=== PATIENT | male | born 1980 | race Caucasian/White ===

== ENCOUNTER 2020-07-13 17:06 | Inpatient (IN) | payer OTHER, SELFPAY ==
[2020-07-13] VITALS (9 sets, daily range): BP systolic 98–162; BP diastolic 62–90; PULSE 71–89; RESP 14–18; TEMP 36–37.8; O2SAT 92–99; BMI 23.7; BMI 27.8; BMI 22.9
[2020-07-13] MEDS: Ondansetron 4 MG/2 ML Vial IV (17:23)
--- NOTE | 2020-07-13 17:23 | RAD_ITS ---
INDICATION: trauma EXAMINATION/TECHNIQUE: X-RAY - RIGHT XR Ankle 2 Views COMPARISON: None. FINDINGS: Severe deformity of the ankle with likely dislocation at the talonavicular and talocalcaneal joints. No obvious fracture. No blastic or lytic lesions. No degenerative changes are seen. Marked soft tissue swelling of the ankle. RAD/Ankle 2 Views IMPRESSION: Severe deformity of the ankle with likely dislocation at the talonavicular and talocalcaneal joints. No obvious fracture. Recommend CT. Electronically Signed: Catarino Marie MD at 18:05 EDT Tel , Service support ,
--- NOTE | 2020-07-13 17:24 | ED.VIS.GEN ---
History of Present Illness Chief Complaint: Lower Extremity Injury Informant: Patient Onset: Today Context: Sudden Onset Timing: Continuous Current Severity: Moderate Maximum Severity: Severe Narrative: Patient is a 40-year-old male who is otherwise healthy on no daily medications who presents to the emergency department with right ankle injury. Patient was working on a priti truss. He states that approximately 12 to 15 feet in the air. The structure fell. He states that he went a 45 degree angle down with the structure. He landed on his right foot and suffered inversion injury. He did not strike his head. He denies loss of consciousness. He denies striking his back. He initially went to his primary care, but had bleeding at the area. They were concerned for open fracture and was sent here for further evaluation. Patient is unsure of last tetanus. He is otherwise been in his normal state of health. Prior similar symptoms: No Recent Illness/Hospitalization: No Past Medical History - Allergies and Home Meds Allergies/Adverse Reactions: Allergies No Known Allergies Allergy (Verified 07/13/20 17:08) Prior records reviewed: Yes Past Medical History: None Surgical History: noncontributory - Family History Maternal Family History: Reports: No pertinent history Paternal Family History: Reports: No pertinent history Review of Systems General: Denies: Chills, Fever, Sweats Eyes: Denies: Visual changes - bilaterally, Diplopia ENT: Denies: Rhinorrhea, Sore throat Cardiovascular: Denies: Chest pain, Palpitations Respiratory: Denies: Dyspnea, Cough, Dyspnea on exertion Gastrointestinal: Denies: Abdominal pain, Nausea, Vomiting, Diarrhea, Melena, Hematochezia Genitourinary: Denies: Dysuria, Hematuria, Frequency Musculoskeletal: Denies: Back pain, Extremity Pain Skin: Denies: Rash, Wounds Neurological: Denies: Headache, Weakness, Numbness Physical Exam Vital Signs/Narrative: Vital Signs Temp Pulse Resp BP Pulse Ox 07/13/20 17:07 97.0 F L 71 14 121/90 H 95 Inital Vital Signs reviewed: Yes General: Well nourished, Well developed, No Acute Distress Head: Normocephalic, Atraumatic Eyes: Perrl, EOMI ENT: Moist mucous membranes, No rhinorrhea Neck: Supple, Nontender Cardiovascular: Regular rate, Regular rhythm, No murmurs Respiratory: No distress, CTA bilaterally, Chest nontender Abdomen: Soft, Nontender, Nondistended, Normal bowel sounds Back: Nontender, Normal Inspection Extremities: No edema, Tenderness - Patient has obvious deformity of the right lower extremity. Is normal pulses. There is a 1 cm laceration over the lateral malleolus with active bleeding. No pain at the proximal fibula. Skin: Normal color, No rash Neurological: Alert, Oriented x3, Cranial nerves II-XII grossly intact, Normal Strength, Normal Sensation Psychological: Normal affect, Normal Mood Diagnostic/Tx/Re-eval Clinical Impression(s) from Imaging Studies Ankle X-Ray 07/13/20 17:23 IMPRESSION: Severe deformity of the ankle with likely dislocation at the talonavicular and talocalcaneal joints. No obvious fracture. Recommend CT. Electronically Signed: Catarino Marie MD at 18:05 EDT Tel , Service support , Lower Extremity CT 07/13/20 17:39 IMPRESSION: Fracture dislocation of the subtalar and talonavicular articulations. Electronically Signed: Damion Santiago MD at 18:50 EDT , Service support , Abnormal Lab Results 07/13/20 07/13/20 17:20 17:20 WBC 13.0 H RBC 5.64 Hgb 16.6 H Hct 49.1 MCV 87.1 MCH 29.4 MCHC 33.8 RDW Std Deviation 38.6 RDW Coeff of Haylie 12.2 Plt Count 209 MPV 9.2 Immature Gran % (Auto) 0.500 Neut % (Auto) 81.9 H Lymph % (Auto) 12.0 L [place] % (Auto) 4.9 Eos % (Auto) 0.4 Baso % (Auto) 0.3 Absolute Neuts (auto) 10.6 H Absolute Lymphs (auto) 1.55 Nucleated RBC % 0 Sodium 140 Potassium 3.9 Chloride 106 Carbon Dioxide 28.0 Anion Gap 6 BUN 16 Creatinine 1.12 Estim Creat Clear Calc 89.62 Est GFR (MDRD) Af Amer 93 Est GFR (MDRD) Non-Af 77 BUN/Creatinine Ratio 14.3 Glucose 123 H Calcium 9.1 - Medical Decision Making Patient presents with obvious deformity of the foot, but does have pulses. There is an open area. He was given IV analgesics and antibiotics. His tetanus was updated. Plain films were obtained and I promptly discussed this with Dr. Unger. He did request CT which was done. We did not reduce the patient in the emergency department because he was going to be taken to the operating room by podiatry. Patient was comfortable with this plan of care. Impression 1. Open subtalar and talonavicular dislocation ED Disposition - Plan for ED Patient: Disposition: Acute Care Hospital [facility]
[2020-07-13] MEDS: Morphine 4 MG/ML Syringe IV (17:26)
[2020-07-13] MEDS: 0.9% Normal Saline 1,000 ML 1000 ML IV (17:33)
[2020-07-13] MEDS: Diphth,Pertuss(Acell),Tet Vac 0.5 ML Vial IM (17:33)
--- NOTE | 2020-07-13 17:39 | CT_ITS ---
STUDY: CT RIGHT ANKLE WITHOUT CONTRAST REASON FOR EXAM: Male, 40 years old. Pain. Abnormal x-ray. Fall from roof, injury RADIATION DOSAGE (If Supplied By Facility): CTDIvol = ( 15.35 ) mGy, DLP = ( 457.38 ) mGycm TECHNIQUE: Thin section transaxial imaging of the ankle was obtained, with sagittal and coronal reconstructed images. Individualized dose optimization techniques were used for this CT. COMPARISON: X-ray. FINDINGS: Normal visualized distal tibia and fibula. Normal tibiotalar articulation and talar dome. There is medial dislocation at the subtalar and talonavicular articulations. There are acute fractures of the posterior inferior talus. Normal navicular-cuneiform, cuneiform tarsal bones and intercuneiform articulations. Normal tarsometatarsal articulations and visualized metatarsi. There is soft tissue swelling. CT/Extremity Lower without Contra IMPRESSION: Fracture dislocation of the subtalar and talonavicular articulations. Electronically Signed: Damion Santiago MD at 18:50 EDT , Service support ,
[2020-07-13 17:51] LABS: Anion Gap 6 (5-15); BUN 16 mg/dL (7-18); BUN/Creat Ratio 14.3 RATIO (10-20); Calcium,Total 9.1 mg/dL (8.5-10.1); Chloride 106 mmol/L (98-107); Creatinine, Serum 1.12 mg/dL (0.70-1.30); EST Glomerular Filtration Rate 77 mL/min (>60); Est Glom Filt Rate - Afr Amer 93 mL/min (>60); Estimated Creatinine Clearance 89.62 ml/min; Glucose 123 mg/dL (74-106); Potassium 3.9 mmol/L (3.5-5.1); Sodium Level 140 mmol/L (136-145)
[2020-07-13 17:53] LABS: Absolute Lymphocyte Count 1.55 X10^3/uL (0.83-4.51); Absolute Neutrophil Count 10.6 X10^3/uL (2.0-7.7); Basophil# 0.04 X10^3/uL; Basophil% 0.3 % (0-1); Eosinophil# 0.05 X10^3/uL; Eosinophils% 0.4 % (0-5); Hematocrit 49.1 % (40-54); Hemoglobin 16.6 g/dL (13.0-16.5); Lymphocyte # 1.55 X10^3/ul (0.83-4.51); Mean Corp Hgb Conc 33.8 g/dL (32-36); Mean Corpuscular Hgb 29.4 pg (27.0-32.0); Mean Corpuscular Volume 87.1 fL (80-94); Mean Platelet Vol. 9.2 fl (6.2-12.0); Monocyte# 0.63 X10^3/uL; Monocyte% 4.9 % (0-10); NRBC Flagged by Analyzer 0 % (0-5); Neutrophil # 10.61 X10^3/uL (2.7-7.7); Neutrophil % 81.9 % (47-70); Platelet Count 209 K/mm3 (150-450); RBC Distribution Width CV 12.2 % (11.6-14.6); RBC Distribution Width SD 38.6 fl (35.1-43.9); Red Blood Count 5.64 M/mm3 (4.6-6.2)
[2020-07-13] MEDS: HYDROmorphone 1 MG/ML Syringe IV (17:58)
[2020-07-13] MEDS: Cefazolin 1 GM/50 ML BAG IV (17:59)
--- NOTE | 2020-07-13 18:04 | PCM.CONS.GEN ---
Problem List (1) Closed traumatic dislocation of subtalar joint Status: Acute Qualifiers: Encounter type: initial encounter Laterality: right Qualified Code(s): S93.314A - Dislocation of tarsal joint of right foot, initial encounter Reason for Consult Date of Consultation: 07/13/20 Reason for Consultation: medical management for surgical patient History of Present Illness: The patient is a 40 year old M who presented today with a suspected subtalar fracture. Patient states that he was working on a barn and they were removing trusses when they removed the first truss the rest of the trusses fell and he fell with it. Patient denies hitting head or back. Patient right ankle deformed with noted inversion. Ankle x-ray impression: [Severe deformity of the ankle with likely dislocation at the talonavicular and talocalcaneal joints. No obvious fracture. Recommend CT]. Lower extremity CT pending. Patient has no medical history. Surgical history of appendectomy and hernia repair. Patient does not currently take daily medications. Patient reports he took ibuprofen prior to arrival at ER. Patient rates ankle pain 10/03 and has received IV dilaudid in ER. VS stable. Past Medical History Allergies No Known Allergies Allergy (Verified 07/13/20 17:08) Home Medications: Ambulatory Orders Medication Instructions Recorded NK 07/13/20 Surgical History: appendectomy, herniorrhaphy Psychiatric History: No pertinent psych hx Lives: Spouse/ Significant Other Smoking Status: Never smoker Alcohol: None Drugs: None - *Family History Maternal History Items: No pertinent history Paternal History Items: No pertinent history Review of Systems Constitutional: Denies: Chills, Fever, Weight Change HEENT: Denies: Head Aches, Sinus Congestion, Sinus Drainage Cardiovascular: Denies: Chest Pain, Palpitations Respiratory: Denies: Cough, Shortness of breath at rest, Sputum production Gastrointestinal: Denies: Abdominal Pain, Nausea, Vomiting Genitourinary: Denies: Dysuria Musculoskeletal: Reports: Foot Pain, Joint swelling - Right Foot/ankle, Joint Tenderness Skin: Denies: Rash, Wounds Neurological: Denies: Numbness, Tingling, Focal weakness Psychiatric: Denies: Anxiety, Depression, Homicidal Ideations, Suicidal Ideations Hematologic/ Lymphatic: Denies: Easy Bruising, Easy Bleeding Patient Problems: Active and Suspected Problems Closed traumatic dislocation of subtalar joint (Acute) - Physical Exam Vitals/I&O's: Vital Signs Temp Pulse Resp BP Pulse Ox 97.0 F L 71 14 121/90 H 95 07/13/20 17:07 07/13/20 17:07 07/13/20 17:07 07/13/20 17:07 07/13/20 17:07 Oxygen Delivery Method Room Air Weight: 165 lb 5.547 oz Body Mass Index (BMI) 23.7 General: Alert, Oriented x3, Cooperative HEENT: Atraumatic, PERRLA, EOMI, Normocephalic Neck: Supple, No JVD, Negative Carotid Bruits Lungs: Clear to auscultation, Normal air movement Cardiovascular: Regular rate, Regular Rhythm, Normal S1, Normal S2, No murmurs Abdomen: Bowel Sounds Present, Soft, Non Tender Extremities: No edema, Capillary Refill Less than 3 Seconds, Peripheral Pulses Normal Skin: No rashes, No breakdown Musculoskeletal: Tenderness - Patient right ankle obviously deformed and swollen, pulses intact. Neurological: Cranial nerves II-XII grossly intact Psych/Mental Status: Normal Affect, Appropriate Laboratory Results 07/13/20 17:20: WBC 13.0 H, RBC 5.64, Hgb 16.6 H, Hct 49.1, MCV 87.1, MCH 29.4, MCHC 33.8, RDW Std Deviation 38.6, RDW Coeff of Haylie 12.2, Plt Count 209, MPV 9.2, Immature Gran % (Auto) 0.500, Neut % (Auto) 81.9 H, Lymph % (Auto) 12.0 L, Motley % (Auto) 4.9, Eos % (Auto) 0.4, Baso % (Auto) 0.3, Absolute Neuts (auto) 10.6 H, Absolute Lymphs (auto) 1.55, Nucleated RBC % 0 07/13/20 17:20: Sodium 140, Potassium 3.9, Chloride 106, Carbon Dioxide 28.0, Anion Gap 6, BUN 16, Creatinine 1.12, Estim Creat Clear Calc 89.62, Est GFR (MDRD) Af Amer 93, Est GFR (MDRD) Non-Af 77, BUN/Creatinine Ratio 14.3, Glucose 123 H, Calcium 9.1 Current Medications Sodium Chloride () 1,000 mls @ 1,000 mls/hr IV .Q1H ONE Stop: 07/13/20 18:17 Last Admin: 07/13/20 17:33 Dose: 1,000 mls/hr Documented by: Assessment/Plan All Active Problems Closed traumatic dislocation of subtalar joint (Acute) 1. Closed traumatic dislocation of the subtalar joint -Per Ankle X-ray report-Severe deformity of the ankle with likely dislocation at the talonavicular and talocalcaneal joints. No obvious fracture. -CT results pending. -Admit to MedSurg -Pain medication regimen ordered including acetaminophen, oxycodone, and morphine. -Antiemetics also ordered as needed. -CBC and CMP in morning -NPO prior to surgery. DVT prophylaxis-recommend SCDs This patient was seen by MALENA Puente under the supervision of Dr. Pereyra.
--- NOTE | 2020-07-13 18:52 | HP.PCM_ITS ---
History of Present Illness Date of Admission: 07/13/20 Chief Complaint: Right foot dislocation The patient is a 40 year old gentleman presented to the [facility] ER today for right foot open dislocation of the subtalar joint. Patient relates he fell off a roof this afternoon, and twisted foot. He had obvious deformity and pain. He went to his PCP's office, Dr. Garcia, and was referred to the ER due to the injury. Right ankle xrays and CT scan of the right foot/ankle confirmed subtalar joint and talonavicular dislocations with some fractures of the posterior inferior talus. He has an open wound to the lateral ankle/foot. Patient with no known medical history, he denies use of tobacco. He has no other complaints. Past Medical History Allergies No Known Allergies Allergy (Verified 07/13/20 17:08) Home Medications: Ambulatory Orders Medication Instructions Recorded NK 07/13/20 Surgical History: appendectomy, herniorrhaphy Psychiatric History: No pertinent psych hx Lives: Spouse/ Significant Other Smoking Status: Never smoker Tobacco Use: Non-smoker Alcohol: None Drugs: None - *Family History Maternal History Items: No pertinent history Paternal History Items: No pertinent history Review of Systems Constitutional: Denies: Chills, Fever, Malaise, Fatigue Eyes: Denies: Blurred vision HEENT: Denies: Head Aches Gastrointestinal: Denies: Nausea, Vomiting Musculoskeletal: Reports: Foot Pain, Joint Pain - right foot Skin: Reports: Wounds VTE Information - Inpt Only VTE Present on Admission: No Patient Problems: Active and Suspected Problems Closed traumatic dislocation of subtalar joint (Acute) - Physical Exam Vitals/I&O's: Vital Signs Temp Pulse Resp BP Pulse Ox 98.9 F 80 14 162/87 H 95 07/13/20 18:23 07/13/20 18:23 07/13/20 18:23 07/13/20 18:23 07/13/20 18:23 Oxygen Delivery Method Room Air Weight: 88 kg Body Mass Index (BMI) 27.8 Intake and Output for Last 24 Hours 07/11/20 07/12/20 07/13/20 23:59 23:59 23:59 Intake Total 50 / 50 Balance 50 / 50 General: Alert, Oriented x3, Cooperative, No apparent distress Extremities: Capillary Refill Less than 3 Seconds, No Calf Tenderness, - - Right foot with dressing intact with no strikethrough. Right ankle xrays and CT scan reviewed. Microbiology Past 72 Hours 07/13/20 17:45 Mucosa - Nose SARS-CoV-2 Antigen (Rapid) - Final Laboratory Results 07/13/20 17:20: WBC 13.0 H, RBC 5.64, Hgb 16.6 H, Hct 49.1, MCV 87.1, MCH 29.4, MCHC 33.8, RDW Std Deviation 38.6, RDW Coeff of Haylie 12.2, Plt Count 209, MPV 9.2, Immature Gran % (Auto) 0.500, Neut % (Auto) 81.9 H, Lymph % (Auto) 12.0 L, [place] % (Auto) 4.9, Eos % (Auto) 0.4, Baso % (Auto) 0.3, Absolute Neuts (auto) 10.6 H, Absolute Lymphs (auto) 1.55, Nucleated RBC % 0 07/13/20 17:20: Sodium 140, Potassium 3.9, Chloride 106, Carbon Dioxide 28.0, Anion Gap 6, BUN 16, Creatinine 1.12, Estim Creat Clear Calc 89.62, Est GFR (MDRD) Af Amer 93, Est GFR (MDRD) Non-Af 77, BUN/Creatinine Ratio 14.3, Glucose 123 H, Calcium 9.1 Current Medications Acetaminophen (Acetaminophen 325 Mg Tablet) 650 mg PO Q6H PRN PRN PRN Reason: Pain Score 1-3 /Temp>100.7 Al Hydroxide/Mg Hydroxide (Mag Hydrox/Al Hydrox/Simeth 30 Ml Udc) 30 ml PO Q6H PRN PRN PRN Reason: Gastric Burning Albuterol Sulfate (Albuterol 2.5 Mg/3 Ml Vial.Neb.) 2.5 mg INHALATION Q2H PRN PRN PRN Reason: Dyspnea, wheezing Bisacodyl (Bisacodyl 5 Mg Tablet) 10 mg PO DAILY PRN PRN PRN Reason: Constipation Docusate Sodium (Docusate Sodium 100 Mg Capsule) 200 mg PO BID PRN PRN PRN Reason: Constipation Hydralazine HCl (Hydralazine 20 Mg/Ml Vial) 10 mg IV Q4H PRN PRN PRN Reason: SBP > 160 Sodium Chloride () 1,000 mls @ 100 mls/hr IV .Q10H LALO Morphine Sulfate (Morphine 2 Mg/Ml Syringe) 2 - 4 mg IV Q3H PRN PRN PRN Reason: Pain Score 6-10 Morphine Sulfate (Morphine 2 Mg/Ml Syringe) 1 - 2 mg IV Q4H PRN PRN PRN Reason: Pain Score 4-5 Ondansetron HCl (Ondansetron 4 Mg/2 Ml Vial) 4 mg IV Q8H PRN PRN PRN Reason: Nausea Oxycodone HCl (Oxycodone 5 Mg Tablet) 5 mg PO Q4H PRN PRN PRN Reason: Pain Score 4-5 Polyethylene Glycol (Polyethylene Glycol 3350 17 Gm Packet) 17 gm PO DAILY LALO Prochlorperazine Edisylate (Prochlorperazine 10 Mg/2 Ml Vial) 10 mg IV Q6H PRN PRN PRN Reason: Nausea/Vomiting Assessment/Plan All Active Problems Closed traumatic dislocation of subtalar joint (Acute) Right subtalar joint and talonavicular joint open dislocation with some fractures of the posterior inferior talus Reviewed diagnostic data. Reviewed right ankle and right foot/ankle CT scan. Reviewed the findings with the patient in detail. We discussed options with the patient. Given the severity of the injury and dislocation and open nature of this we all agree it is best to proceed with open reduction with possible fixation of the subtalar joint and talonavicular joint dislocation with irritation. Reviewed the possible benefits vs risks of this, reviewed alternative options. Reviewed goals and expectations. Patient elected to proceed forward with the procedure today. The patient will be started on antibiotics. A culture will be obtained intraoperatively. The patient will be admitted for antibiotics, pain control, and observation post operatively. Patient agreed with this plan. The hospitalist service was consulted for medical evaluation as patient with no known significant medical history otherwise.
[2020-07-13] MEDS: Bupivacaine Mpf 0.5% 30 ML VIAL (19:15)
--- NOTE | 2020-07-13 19:20 | RAD_ITS ---
STUDY: Fluoroscopic guidance for operative procedure of ORIF surgery through the ankle. REASON FOR EXAM: Male, 40 years old. DISLOCATION TECHNIQUE: Fluoroscopic guidance was provided for operative procedure of pinning of the talus and calcaneus. The radiologist was not present in the room. 4 images were obtained during the exam. The total fluoroscopy time is 54 seconds. COMPARISON: None. FINDINGS: Submitted images reveal pinning of the talus and calcaneus are normal alignment visualized. RAD/Ankle 2 Views IMPRESSION: Endoscopic guidance for operative procedure through the talus and calcaneus as described. For details please see operative report. Electronically Signed: Angela Yu MD at 2:52 EDT , Service support ,
--- NOTE | 2020-07-13 20:29 | PCM.OPRPT ---
Report of Operation Date of Procedure: 07/13/20 Pre-Operative Diagnosis: Open dislocation of the subtalar and talonavicular joints, right Post-Operative Diagnosis: Same Surgery/Procedure Performed:: Open reduction and internal fixation of the subtalar and talonavicular joints, right foot manager intermediate: None Type of Anesthesia:: General, Local Specimen's removed: Deep wound culture from right lateral hindfoot/ankle sent to microbiology Description of Procedure: Indications: This is 40 year old gentleman who sustained a right foot subtalar and talonavicular joint dislocation, this is an open dislocation, which happened this afternoon around 3pm, falling about 15 feet on the foot. Patient presented to the ER shortly after the injury. He elected to proceed with irritation with open reduction and possible internal fixation of the dislocated joints. Reviewed the procedure with patient in great detail. Reviewed the possible benefits. Reviewed the risks with him, advised him the risks include but are not limited to pain, swelling, numbness, deformity, post op/post traumatic arthritis, weakness, scar tissue, blood clots, bleeding, infection, need for further surgery, delayed healing, nonhealing, difficulty walking, loss of function, complex regional pain syndrome, loss of limb, loss of life. Patient expressed understanding and agreement and was able to repeat back. The consent form was reviewed with him and he freely signed it. All of his questions were answered. No guaranteed were given nor implied. No warranties were given. Operative procedure: The patient was brought back to the operating room and was placed on the operating room table in the supine position. He was carefully secured to the operating room table with a safety belt around his waist. The patient already received IV Ancef in the ER. The patient received general anesthesia per the anesthesia team. A well padded pneumatic tourniquet was applied around his right ankle but was never inflated. A time out was performed and the patient was properly identified and the surgical plan was confirmed. The right foot and ankle were scrubbed, prepped, and draped in the usual aseptic fashion. Further attention was directed to the right foot and there was very obvious deformity of the right foot with varus deformity and clear dislocation of the hindfoot. There was an open wound of ~1cm to the lateral hindfoot with some active bleeding. The site was flushed out with copious amounts of normal saline solution. The talonavicular and subtalar joints were distracted each manually and both were gently reduced back into normal alignment. This was confirmed clinically and via intra operative fluoroscopy. There was noted to be instability of the subtalar joint and would pop out of alignment at end inversion range of motion. Therefore a 5/64 in Hemal pin was placed percutaneously across the posterior subtalar joint with the joint in normal alignment. Proper placement was confirmed using intraoperative fluoroscopy. There was now good and normal stability to the foot and was in normal alignment. The ankle was checked and rest of the foot joints checked and there was no instability noted. There was negative anterior drawer to the right ankle and normal ankle inversion. The wound site was again flushed out with copious amounts of normal saline solution. A deep wound culture was obtained and sent to microbiology. The wound was noted to be healthy and viable with no necrosis, no fluctuance, no crepitus, no abscess, no purulence noted. The wound was closed with 3-0 Nylon. The kwire was trimmed and capped. A total of 30mL of 0.5% Bupivacaine plain was given as a local block around the hindfoot/ankle was given to help with post operative pain control. A dressing was applied which consisted of Betadine soaked adaptic, 4x4 gauze, Kerlix, abd pads and an lisa bandage. A well padded posterior splint was applied to the right foot, ankle and leg secured with lisa bandages and heel offloaded. CFT < 2 seconds to all toes and there was noted to be normal temperature to the right foot with no evidence of ischemia noted. The patient tolerated the above procedure well and anesthesia well with no complications. The patient was transported from the operating room with vital signs stable and in good condition. Post operative orders placed. Formal post operative xrays were ordered. The patient will be admitted for observation, pain control and antibiotics. He will be followed as an inpatient. Grafts/Implants Used: 1 x 5/64 in Steiman pin - Complications None
--- NOTE | 2020-07-13 21:00 | RAD_ITS ---
STUDY: X-RAY - RIGHT ANKLE REASON FOR EXAM: Male, 40 years old. post op TECHNIQUE: 3 view(s) of the ankle. COMPARISON: None. FINDINGS: Normal visualized distal tibia and fibula. Normal medial and lateral malleoli. Normal tibiotalar articulation and ankle mortise. Fixation pin through the talus and calcaneus otherwise normal visualized talus and calcaneus. The visualized subtalar, talonavicular, calcaneocuboid and tarsal articulations are normal. Soft tissue swelling from surrounding the ankle. RAD/Ankle min 3 Views IMPRESSION: Postoperative changes as described with soft tissue swelling at the ankle. Normal alignment. Electronically Signed: Angela Yu MD at 2:51 EDT , Service support ,
--- NOTE | 2020-07-13 21:00 | RAD_ITS ---
STUDY: X-RAY - RIGHT FOOT CLINICAL: Male, 40 years old. post op TECHNIQUE: 3 view(s) of the foot. COMPARISON: None. FINDINGS: Postoperative changes through the talus and calcaneus with fixation pin, otherwise normal talus, calcaneus, and tarsal bones. Normal visualized subtalar, talonavicular, calcaneocuboid, tarsal and tarsometatarsal articulations. Normal metatarsi. Normal metatarsophalangeal joint of the great toe. Normal tibial and fibular sesamoid bones. Normal interphalangeal joint of the great toe. Normal phalanges of the great toe. Normal second through fifth metatarsophalangeal joints. Normal interphalangeal joints and phalanges of the lesser toes. There is soft tissue swelling surrounding the ankle. RAD/Foot min 3 Views IMPRESSION: Postoperative changes as described with normal alignment. Persistent soft tissue swelling at the ankle. Electronically Signed: Angela Yu MD at 2:50 EDT , Service support ,
[2020-07-13] MEDS: 0.9% Normal Saline 1,000 ML 100 ML IV (21:52)
[2020-07-14 01:44] VITALS: BP 107/62; PULSE 71; RESP 16; TEMP 37.4; O2SAT 94
[2020-07-14 05:44] VITALS: BP 108/58; PULSE 79; RESP 16; TEMP 36.9; O2SAT 94
[2020-07-14 06:53] LABS: Absolute Lymphocyte Count 1.34 X10^3/uL (0.83-4.51); Absolute Neutrophil Count 8.7 X10^3/uL (2.0-7.7); Basophil# 0.01 X10^3/uL; Basophil% 0.1 % (0-1); Hematocrit 45.9 % (40-54); Hemoglobin 15.3 g/dL (13.0-16.5); Lymphocyte # 1.34 X10^3/ul (0.83-4.51); Lymphocyte % 12.8 % (19-41); Mean Corp Hgb Conc 33.3 g/dL (32-36); Mean Corpuscular Hgb 29.2 pg (27.0-32.0); Mean Corpuscular Volume 87.6 fL (80-94); Mean Platelet Vol. 9.3 fl (6.2-12.0); Monocyte# 0.37 X10^3/uL; Monocyte% 3.5 % (0-10); NRBC Flagged by Analyzer 0 % (0-5); Neutrophil # 8.69 X10^3/uL (2.7-7.7); Neutrophil % 83.3 % (47-70); Platelet Count 198 K/mm3 (150-450); RBC Distribution Width CV 12.3 % (11.6-14.6); RBC Distribution Width SD 39.3 fl (35.1-43.9); Red Blood Count 5.24 M/mm3 (4.6-6.2); White Blood Count 10.4 K/mm3 (4.4-11.0)
[2020-07-14 07:15] LABS: ALB/GLOB Ratio 1.1 RATIO (0.9-2.4); AST(SGOT) 27 U/L (15-37); Alanine Aminotransfer ALT/SGPT 72 U/L (16-61); Albumin, Serum 3.4 g/dL (3.2-5.0); Alkaline Phosphatase 43 U/L (45-117); Anion Gap 7 (5-15); BUN 13 mg/dL (7-18); BUN/Creat Ratio 14.9 RATIO (10-20); Calcium,Total 8.5 mg/dL (8.5-10.1); Chloride 108 mmol/L (98-107); Creatinine, Serum 0.87 mg/dL (0.70-1.30); EST Glomerular Filtration Rate 102 mL/min (>60); Est Glom Filt Rate - Afr Amer 124 mL/min (>60); Globulin 3.1 g/dL (2.2-4.2); Glucose 128 mg/dL (74-106); Potassium 3.8 mmol/L (3.5-5.1); Protein, Total 6.5 g/dL (6.4-8.2); Sodium Level 139 mmol/L (136-145)
--- NOTE | 2020-07-14 07:41 | PCM.PROGNOTE ---
Patient Problems: Active and Suspected Problems Closed traumatic dislocation of subtalar joint (Acute) Subjective: Patient was seen this morning for follow up on right foot s/p reduction of TN and STJ with pin fixation. Patient relates he currently does not have any pain, no complaints of fever, chills, nausea or vomiting. He has no complaints. - Physical Exam Vitals/I&O's: Vital Signs Temp Pulse Resp BP Pulse Ox 98.4 F 79 16 108/58 L 94 07/14/20 05:44 07/14/20 05:44 07/14/20 05:44 07/14/20 05:44 07/14/20 05:44 Oxygen Delivery Method Room Air Weight: 72.575 kg Body Mass Index (BMI) 22.9 Intake and Output for Last 24 Hours 07/12/20 07/13/20 07/14/20 23:59 23:59 23:59 Intake Total 1050 / 1050 50 / 50 Output Total 1750 / 1750 Balance 1050 / 300 -1700 / -1700 General: Alert, Oriented x3, Cooperative, No apparent distress Extremities: Capillary Refill Less than 3 Seconds, No Calf Tenderness, - - Dressing/splint to the right foot/ankle is clean, dry and intact, CFT < 2 seconds to all toes, no pain, he is able to wiggle toes with dorsiflexion and plantarflexion. Microbiology Past 72 Hours 07/13/20 17:45 Mucosa - Nose SARS-CoV-2 Antigen (Rapid) - Final Laboratory Results 07/13/20 17:20: WBC 13.0 H, RBC 5.64, Hgb 16.6 H, Hct 49.1, MCV 87.1, MCH 29.4, MCHC 33.8, RDW Std Deviation 38.6, RDW Coeff of Haylie 12.2, Plt Count 209, MPV 9.2, Immature Gran % (Auto) 0.500, Neut % (Auto) 81.9 H, Lymph % (Auto) 12.0 L, [place] % (Auto) 4.9, Eos % (Auto) 0.4, Baso % (Auto) 0.3, Absolute Neuts (auto) 10.6 H, Absolute Lymphs (auto) 1.55, Nucleated RBC % 0 07/13/20 17:20: Sodium 140, Potassium 3.9, Chloride 106, Carbon Dioxide 28.0, Anion Gap 6, BUN 16, Creatinine 1.12, Estim Creat Clear Calc 89.62, Est GFR (MDRD) Af Amer 93, Est GFR (MDRD) Non-Af 77, BUN/Creatinine Ratio 14.3, Glucose 123 H, Calcium 9.1 07/14/20 06:08: WBC 10.4, RBC 5.24, Hgb 15.3, Hct 45.9, MCV 87.6, MCH 29.2, MCHC 33.3, RDW Std Deviation 39.3, RDW Coeff of Haylie 12.3, Plt Count 198, MPV 9.3, Immature Gran % (Auto) 0.300, Neut % (Auto) 83.3 H, Lymph % (Auto) 12.8 L, [place] % (Auto) 3.5, Eos % (Auto) 0.0, Baso % (Auto) 0.1, Absolute Neuts (auto) 8.7 H, Absolute Lymphs (auto) 1.34, Nucleated RBC % 0 07/14/20 06:08: Sodium 139, Potassium 3.8, Chloride 108 H, Carbon Dioxide 24.0, Anion Gap 7, BUN 13, Creatinine 0.87, Estim Creat Clear Calc 114.70, Est GFR (MDRD) Af Amer 124, Est GFR (MDRD) Non-Af 102, BUN/Creatinine Ratio 14.9, Glucose 128 H, Calcium 8.5, Total Bilirubin 0.80, AST 27, ALT 72 H, Alkaline Phosphatase 43 L, Total Protein 6.5, Albumin 3.4, Globulin 3.1, Albumin/Globulin Ratio 1.1 Current Medications Acetaminophen (Acetaminophen 325 Mg Tablet) 650 mg PO Q6H PRN PRN PRN Reason: Pain Score 1-10 /Temp>100.7 Al Hydroxide/Mg Hydroxide (Mag Hydrox/Al Hydrox/Simeth 30 Ml Udc) 30 ml PO Q6H PRN PRN PRN Reason: Gastric Burning Albuterol Sulfate (Albuterol 2.5 Mg/3 Ml Vial.Neb.) 2.5 mg INHALATION Q2H PRN PRN PRN Reason: Dyspnea, wheezing Bisacodyl (Bisacodyl 5 Mg Tablet) 10 mg PO DAILY PRN PRN PRN Reason: Constipation Docusate Sodium (Docusate Sodium 100 Mg Capsule) 200 mg PO BID PRN PRN PRN Reason: Constipation Hydralazine HCl (Hydralazine 20 Mg/Ml Vial) 10 mg IV Q4H PRN PRN PRN Reason: SBP > 160 Sodium Chloride () 1,000 mls @ 100 mls/hr IV .Q10H [facility] Last Admin: 07/13/20 21:52 Dose: 100 mls/hr Documented by: Piperacillin Sod/Tazobactam (Sod 3.375 gm/ Sodium Chloride) 50 mls @ 12.5 mls/hr IV Q8 [facility] Last Admin: 07/14/20 05:45 Dose: 12.5 mls/hr Documented by: Sodium Chloride () 250 mls @ 15 mls/hr IV .[id number] PRN PRN Reason: Saline Flush Sodium Chloride () 250 mls @ 15 mls/hr IV .[id number] PRN PRN Reason: Additional IVPB Infusion Morphine Sulfate (Morphine 2 Mg/Ml Syringe) 2 - 4 mg IV Q3H PRN PRN PRN Reason: Pain Score 6-10 Morphine Sulfate (Morphine 2 Mg/Ml Syringe) 1 - 2 mg IV Q4H PRN PRN PRN Reason: Pain Score 4-5 Ondansetron HCl (Ondansetron 4 Mg/2 Ml Vial) 4 mg IV Q8H PRN PRN PRN Reason: Nausea Oxycodone HCl (Oxycodone 5 Mg Tablet) 5 mg PO Q4H PRN PRN PRN Reason: Pain Score 4-5 Polyethylene Glycol (Polyethylene Glycol 3350 17 Gm Packet) 17 gm PO DAILY [facility] Prochlorperazine Edisylate (Prochlorperazine 10 Mg/2 Ml Vial) 10 mg IV Q6H PRN PRN PRN Reason: Nausea/Vomiting Sodium Chloride (0.9% Saline Lock 10 Ml Syringe) 10 - 40 ml IV UD PRN PRN Reason: SALINE FLUSH Medical Necessity - Tobacco Use Smoking Status: Never smoker Tobacco Use: Non-smoker Assessment/Plan All Active Problems Closed traumatic dislocation of subtalar joint (Acute) Right subtalar joint and talonavicular joint open dislocation with some fractures of the posterior inferior talus s/p reduction and pin placement on 07/13/2020 Patient doing well this morning. No evidence of complications at this time. Patient to keep dressing/splint clean, dry and intact. No weightbearing right foot, keep right foot elevated. Cultures pending, Dr. Saha from ID consulted for antibiotic recommendations due to open nature of this dislocation. Reviewed mechanical DVT Prophylaxis with patient. Rx for [place] 5mg/325mg, 1-2 tabs PO q 6 hr prn pain for patient to go home with. Plan for patient to be discharged home today, and patient to follow up with me in office on Monday07/17/2020 at 9AM, sooner if needed.
--- NOTE | 2020-07-14 08:06 | PCM.PN.HOSP ---
Patient Problems: Active and Suspected Problems Closed traumatic dislocation of subtalar joint (Acute) Reason for Visit: Follow-up for right subtalar and talonavicular traumatic dislocation Objective: Heart rate and blood pressure are controlled. Patient seen along with ID tour consultant Dr. Saha. Patient stated he rotated his ankle and had traumatic dislocation. Patient is states he has not been vaccinated with COVID-19 and does not want Covid vaccine. Physical exam General: Alert, Oriented x3, Cooperative HEENT: Atraumatic, PERRLA, EOMI, Normocephalic Oral: No Gingival or Mucosal Lesions/ Ulcerations Neck: Supple, No JVD, Negative Carotid Bruits Lungs: Air entry diminished in bilateral lung bases. No crepitation/rhonchi Cardiovascular: Regular rate, Regular Rhythm, Normal S1, Normal S2, No murmurs Abdomen: Bowel Sounds Present, Soft, Non Tender, Non-Distended : No renal angle tenderness. No suprapubic tenderness. Extremities: Capillary Refill Less than 3 Seconds Skin: No rashes, No breakdown Musculoskeletal: Right ankle under Lionel wrap bandage. No surgical drainage or wet or soakage. Mild swelling of right ankle and lower leg. Neurological: Cranial nerves II-XII grossly intact, Deep Tendon Reflexes 2+/4 and Symmetrical, Neuro grossly intact Psych/Mental Status: Normal Affect, Appropriate. Vitals/I&O's: Vital Signs Temp Pulse Resp BP Pulse Ox 98.4 F 79 16 108/58 L 94 07/14/20 05:44 07/14/20 05:44 07/14/20 05:44 07/14/20 05:44 07/14/20 05:44 Oxygen Delivery Method Room Air Weight: 160 lb Body Mass Index (BMI) 22.9 Intake and Output for Last 24 Hours 07/12/20 07/13/20 07/14/20 23:59 23:59 23:59 Intake Total 1050 / 1050 1050 / 1050 Output Total 1750 / 1750 Balance 1050 / 300 -700 / -700 Microbiology Past 72 Hours 07/13/20 17:45 Mucosa - Nose SARS-CoV-2 Antigen (Rapid) - Final Laboratory Results 07/13/20 17:20: WBC 13.0 H, RBC 5.64, Hgb 16.6 H, Hct 49.1, MCV 87.1, MCH 29.4, MCHC 33.8, RDW Std Deviation 38.6, RDW Coeff of Haylie 12.2, Plt Count 209, MPV 9.2, Immature Gran % (Auto) 0.500, Neut % (Auto) 81.9 H, Lymph % (Auto) 12.0 L, [place] % (Auto) 4.9, Eos % (Auto) 0.4, Baso % (Auto) 0.3, Absolute Neuts (auto) 10.6 H, Absolute Lymphs (auto) 1.55, Nucleated RBC % 0 07/13/20 17:20: Sodium 140, Potassium 3.9, Chloride 106, Carbon Dioxide 28.0, Anion Gap 6, BUN 16, Creatinine 1.12, Estim Creat Clear Calc 89.62, Est GFR (MDRD) Af Amer 93, Est GFR (MDRD) Non-Af 77, BUN/Creatinine Ratio 14.3, Glucose 123 H, Calcium 9.1 07/14/20 06:08: WBC 10.4, RBC 5.24, Hgb 15.3, Hct 45.9, MCV 87.6, MCH 29.2, MCHC 33.3, RDW Std Deviation 39.3, RDW Coeff of Haylie 12.3, Plt Count 198, MPV 9.3, Immature Gran % (Auto) 0.300, Neut % (Auto) 83.3 H, Lymph % (Auto) 12.8 L, [place] % (Auto) 3.5, Eos % (Auto) 0.0, Baso % (Auto) 0.1, Absolute Neuts (auto) 8.7 H, Absolute Lymphs (auto) 1.34, Nucleated RBC % 0 07/14/20 06:08: Sodium 139, Potassium 3.8, Chloride 108 H, Carbon Dioxide 24.0, Anion Gap 7, BUN 13, Creatinine 0.87, Estim Creat Clear Calc 114.70, Est GFR (MDRD) Af Amer 124, Est GFR (MDRD) Non-Af 102, BUN/Creatinine Ratio 14.9, Glucose 128 H, Calcium 8.5, Total Bilirubin 0.80, AST 27, ALT 72 H, Alkaline Phosphatase 43 L, Total Protein 6.5, Albumin 3.4, Globulin 3.1, Albumin/Globulin Ratio 1.1 Current Medications Acetaminophen (Acetaminophen 325 Mg Tablet) 650 mg PO Q6H PRN PRN PRN Reason: Pain Score 1-10 /Temp>100.7 Al Hydroxide/Mg Hydroxide (Mag Hydrox/Al Hydrox/Simeth 30 Ml Udc) 30 ml PO Q6H PRN PRN PRN Reason: Gastric Burning Albuterol Sulfate (Albuterol 2.5 Mg/3 Ml Vial.Neb.) 2.5 mg INHALATION Q2H PRN PRN PRN Reason: Dyspnea, wheezing Bisacodyl (Bisacodyl 5 Mg Tablet) 10 mg PO DAILY PRN PRN PRN Reason: Constipation Docusate Sodium (Docusate Sodium 100 Mg Capsule) 200 mg PO BID PRN PRN PRN Reason: Constipation Hydralazine HCl (Hydralazine 20 Mg/Ml Vial) 10 mg IV Q4H PRN PRN PRN Reason: SBP > 160 Piperacillin Sod/Tazobactam (Sod 3.375 gm/ Sodium Chloride) 50 mls @ 12.5 mls/hr IV Q8 [facility] Last Admin: 07/14/20 05:45 Dose: 12.5 mls/hr Documented by: Sodium Chloride () 250 mls @ 15 mls/hr IV .[id number] PRN PRN Reason: Saline Flush Sodium Chloride () 250 mls @ 15 mls/hr IV .[id number] PRN PRN Reason: Additional IVPB Infusion Morphine Sulfate (Morphine 2 Mg/Ml Syringe) 2 - 4 mg IV Q3H PRN PRN PRN Reason: Pain Score 6-10 Morphine Sulfate (Morphine 2 Mg/Ml Syringe) 1 - 2 mg IV Q4H PRN PRN PRN Reason: Pain Score 4-5 Ondansetron HCl (Ondansetron 4 Mg/2 Ml Vial) 4 mg IV Q8H PRN PRN PRN Reason: Nausea Oxycodone HCl (Oxycodone 5 Mg Tablet) 5 mg PO Q4H PRN PRN PRN Reason: Pain Score 4-5 Polyethylene Glycol (Polyethylene Glycol 3350 17 Gm Packet) 17 gm PO DAILY [facility] Prochlorperazine Edisylate (Prochlorperazine 10 Mg/2 Ml Vial) 10 mg IV Q6H PRN PRN PRN Reason: Nausea/Vomiting Sodium Chloride (0.9% Saline Lock 10 Ml Syringe) 10 - 40 ml IV UD PRN PRN Reason: SALINE FLUSH STROKE Vital Signs/Narrative: Vital Signs Temp Pulse Resp BP Pulse Ox 07/14/20 05:44 98.4 F 79 16 108/58 L 94 Medical Necessity - Tobacco Use Smoking Status: Never smoker Tobacco Use: Non-smoker Assessment/Plan All Active Problems Closed traumatic dislocation of subtalar joint (Acute) 1. Closed traumatic dislocation of the subtalar joint, mechanical in origin: Ankle x-ray shows severe deformity of the ankle with dislocation at talonavicular and talocalcaneal joints. Patient had open reduction internal fixation of subtalar and talonavicular joint of right foot. It happened after patient fell down from the roof. No contamination of wound as he was wearing socks and boots. Seen by ID. No need for further antibiotic after discharge. Advised to monitor the surgical wound DVT prophylaxis-recommend SCDs Patient is medically stable to be discharged. Inpatient E&M: 58661 Subs Hosp L2
[2020-07-14 08:55] LABS: Hemoglobin A1c 5.1 % (3.8-5.6)
[2020-07-14 09:44] VITALS: BP 110/62; PULSE 80; RESP 18; TEMP 36.7; O2SAT 99
[2020-07-14 10:42] VITALS: O2SAT 95
--- NOTE | 2020-07-14 11:06 | PCM.HP.ID ---
Problem List (1) Closed traumatic dislocation of subtalar joint Status: Acute Qualifiers: Encounter type: initial encounter Laterality: right Qualified Code(s): S93.314A - Dislocation of tarsal joint of right foot, initial encounter Reason for Consult: open dislocation Consulted by: Dr. Unger History of Present Illness: The patient is a 40 year old M minimal PMH, refuses covid vaccine, presented yesterday after falling off a roof, dislocated R ankle. No contamination of wound, was wearing socks and boots. Taken to OR for ORIF by Dr. Unger, given cefazolin then zosyn. D/c home planned today, no fever, no n/v/d. Full ROS performed and neg except as noted above. - Medical History Allergies/Adverse Reactions: Allergies No Known Allergies Allergy (Verified 07/13/20 17:08) Home Medications: Ambulatory Orders Medication Instructions Recorded Hydrocodone Bitart/Apap 5-325 1 - 2 tablet PO Q6H PRN PRN 3 Days 07/14/20 [[place] 5MG-325MG] #20 tab - Social History SMOKING STATUS:: Current every day smoker Vital Signs Temp Pulse Resp BP Pulse Ox 98.1 F 80 18 110/62 99 07/14/20 09:44 07/14/20 09:44 07/14/20 09:44 07/14/20 09:44 07/14/20 09:44 Oxygen Delivery Method Room Air Weight: 72.575 kg Body Mass Index (BMI) 22.9 Microbiology Past 72 Hours 07/13/20 17:45 SARS-CoV-2 Antigen (Rapid) - Final Mucosa - Nose Laboratory Tests Past 24 Hrs 07/13/20 07/13/20 07/14/20 17:20 17:20 06:08 WBC 13.0 H 10.4 RBC 5.64 5.24 Hgb 16.6 H 15.3 Hct 49.1 45.9 MCV 87.1 87.6 MCH 29.4 29.2 MCHC 33.8 33.3 RDW Std Deviation 38.6 39.3 RDW Coeff of Haylie 12.2 12.3 Plt Count 209 198 MPV 9.2 9.3 Immature Gran % (Auto) 0.500 0.300 Neut % (Auto) 81.9 H 83.3 H Lymph % (Auto) 12.0 L 12.8 L [place] % (Auto) 4.9 3.5 Eos % (Auto) 0.4 0.0 Baso % (Auto) 0.3 0.1 Absolute Neuts (auto) 10.6 H 8.7 H Absolute Lymphs (auto) 1.55 1.34 Nucleated RBC % 0 0 Sodium 140 Potassium 3.9 Chloride 106 Carbon Dioxide 28.0 Anion Gap 6 BUN 16 Creatinine 1.12 Estim Creat Clear Calc 89.62 Est GFR (MDRD) Af Amer 93 Est GFR (MDRD) Non-Af 77 BUN/Creatinine Ratio 14.3 Glucose 123 H Hemoglobin A1c Calcium 9.1 Total Bilirubin AST ALT Alkaline Phosphatase Total Protein Albumin Globulin Albumin/Globulin Ratio 07/14/20 07/14/20 06:08 06:08 WBC RBC Hgb Hct MCV MCH MCHC RDW Std Deviation RDW Coeff of Haylie Plt Count MPV Immature Gran % (Auto) Neut % (Auto) Lymph % (Auto) [place] % (Auto) Eos % (Auto) Baso % (Auto) Absolute Neuts (auto) Absolute Lymphs (auto) Nucleated RBC % Sodium 139 Potassium 3.8 Chloride 108 H Carbon Dioxide 24.0 Anion Gap 7 BUN 13 Creatinine 0.87 Estim Creat Clear Calc 114.70 Est GFR (MDRD) Af Amer 124 Est GFR (MDRD) Non-Af 102 BUN/Creatinine Ratio 14.9 Glucose 128 H Hemoglobin A1c 5.1 Calcium 8.5 Total Bilirubin 0.80 AST 27 ALT 72 H Alkaline Phosphatase 43 L Total Protein 6.5 Albumin 3.4 Globulin 3.1 Albumin/Globulin Ratio 1.1 - Other Studies Radiology: [] reviewed Other Studies: [] Route of nutrition/ use of supplements: [] Nutritional Intake: [] IV Site: [] Jacobson Catheter: [] - Physical Exam General: Alert, Oriented x3, Cooperative, No apparent distress HEENT: Atraumatic, PERRLA, EOMI Neck: Supple, No Nodes Lungs: Clear to auscultation, Normal air movement Cardiovascular: Regular rate, Regular Rhythm Abdomen: Soft, Non Tender, Non-Distended Extremities: No edema Skin: Ulcer/ Wound - wrapped IV Site: Peripheral, without redness Musculoskeletal: No Tenderness to Palpation of Joints or Extremities Neurological: Cranial nerves II-XII grossly intact - Assessment/Plan Antibiotics: [] Assessment/Plan: [] Active and Suspected Problems Closed traumatic dislocation of subtalar joint (Acute) open dislocation R ankle - now s/p ORIF by Dr. Unger. Given lack of comorbidities other than smoking, lack of wound contamination, and now with surgical closure of wound, ok for 24 hours of abx prophylaxis, will give dose of ceftriaxone now. No need for further abx. Recommended covid vaccine. Counseled to monitor for worsening pain/redness/drainage. Follow as needed, d/w Dr. Unger, thank you
--- NOTE | 2020-07-14 11:10 | CASEMGMT ---
ENRIQUE BRINK Assessment: Face to Face with pt for initial transition planning/care coordination assessment. RN KEENA introduced self and role at [facility], pt voices understanding and consents to assessment. Pt is A/O x4 and answers all questions appropriately at this time. Pt sitting up in chair ordering lunch in no distress. at bedside. Care providers, pharmacy, and demographics verified/updated. Admitting Dx: open foot dislocation PCP: Lesly Specialists: None prior to hospitalization Preferred Pharmacy: [facility] Insurance: [employer] Prescription Benefit: no LW/HPOA: Pt denies having LW/DPOA LNOK: , Kavya and 10 children. Friend, Hiren Jain. Living Arrangements: Pt lives in a two story house with his and 10 children with 3 steps to enter without rail at one entrance and 2 steps to enter with rail at another entrance. Pt reports being I in ADL's. Denies concerns at home. 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 DME/HHC/SNF: Pt denies any medical equipment in the home, previous HHC or SNF stay. Pt states no concerns with going home at time of dc. Pt states no further concerns/needs. CM to follow. Advised pt to ask CM if any further question/concerns/needs arise, voices understanding. Pt Goal: Home Plan: Home with family support.
[2020-07-14 12:41] VITALS: BP 131/69; PULSE 86; RESP 18; TEMP 36.7; O2SAT 94
--- NOTE | 2020-07-14 12:42 | PCM.DC.POD ---
Discharge Activity: May Not Drive, Use Crutches Weight Bearing Status: No weight bearing - Absolute no weightbearing right foot Keep extremity elevated above heart level: Right Leg - Keep right foot elevated with pillows with heel offloaded for at least 40-50 minutes of every hour. Call your doctor if your incision/area has: Continuous Slow Oozing, Sudden Increased Bleeding, Foul Smelling Discharge Call your doctor if you observe: Fever of 101 or Higher, Shortness of breath, Chest pain, Calf discomfort, Uncontrolled pain Cleanse incision/area with: Do not get Incision Wet, Keep Dressing Clean & Dry Additional Dressing/Incision Instructions:: Do hip and knee range of motion for 1-2 minutes of every awaking hour to aid and help circulation. Allergies/Adverse Reactions: Allergies No Known Allergies Allergy (Verified 07/13/20 17:08) Medications to take at Discharge Hydrocodone Bitart/Apap 5-325 [[place] 5MG-325MG] 1 - 2 tablet PO Q6H PRN PRN 3 Days #20 tab 07/14/20 The following prescriptions were given: Hydrocodone Bitart/Apap 5-325 [[place] 5MG-325MG] 1 - 2 tablet PO Q6H PRN PRN 3 Days #20 tab PRN Reason: Pain Prescription Printed Primary Care Physician: Tray Grace DO [Primary Care Provider] - Test Results: Test results from this visit will be discussed in further detail at your follow-up appointment, if applicable. Please Follow Up With: Christiano Unger DPM - [facility]; [address], [address], [place], [place]. Office phone number: [phone], to page Dr. Unger after normal hours call [facility] at [phone] When: Monday07/17/2020 at 9am, call sooner if needed
== END 2020-07-14 13:30 | disposition home or self-care (01) | DRG 505 ==
LOC: ED 18:17 → MS3 23:05
PROVIDERS: Family Medicine; Admitting Provider Podiatrist; Emergency Provider Emergency Medicine; PCP Family Medicine; Visit Provider Podiatrist
PROC: 0QSL04Z Reposition Right Tarsal with Internal Fixation Device, Open Approach (ICD-10-PCS; principal; 2020-07-13 18:45)
DX: S93.314A Dislocation of tarsal joint of right foot, initial encounter (principal); S91.011A Laceration without foreign body, right ankle, initial encounter; W13.2XXA Fall from, out of or through roof, initial encounter; Y93.9 Activity, unspecified; Y92.71 Barn as the place of occurrence of the external cause
CPT/HCPCS: 36415; 73600; 73610; 73630; 73700; 76000; 80048; 80053; 83036; 85025; 87015; 87070; 87075; 87102; 87116; 87205; 87206; 87426; 90471; 90715; 97161; 99251; 99285; J7030; A4216; G0463; J0696; J2405

== ENCOUNTER → 2020-09-09 10:36 | Outpatient (CLI) | payer SELFPAY ==
[2020-07-13 21:43] VITALS: BMI 22.9
--- NOTE | 2020-09-09 10:44 | VDLE_ITS ---
Reason For Study: Right calf pain/swelling RIGHT LEFT GSV is normal. CFV is compressible, spontaneous, phasic, CFV is compressible, spontaneous, phasic, competent, and demonstrates normal competent and demonstrates normal augmentation. augmentation. FV is compressible, spontaneous, phasic, competent and demonstrates normal augmentation. POP V is compressible, spontaneous, phasic, competent and demonstrates normal augmentation. T/P Trunk is compressible. PTV is compressible. RT PerV is compressible. Procedure This is a venous duplex using B-mode, color flow and spectral Doppler. Exam performed in department. A preliminary report was called and/or faxed to [facility]. VL/Venous Duplex US, Unilateral Interpretation Summary Deep veins of the right lower extremity are patent and compressible segmentally . There is no evidence of right lower extremity deep vein thrombosis. Valvular competence joseph ears intact within the proximal deep venous system on the right . The right great saphenous vein a ppears patent and compressible segmentally. Ordering Physician: Christiano Unger Referring Physician: Tray Grace Performed By: Kiera Carvalho RVT and Student
== END ==
PROVIDERS: PCP Family Medicine; Referring Provider Podiatrist; Visit Provider Podiatrist
DX: M79.661 Pain in right lower leg (principal); M79.89 Other specified soft tissue disorders
CPT/HCPCS: 93971